=== PATIENT | male | born 1995 | race Caucasian/White ===

== ENCOUNTER 2018-05-13 15:18 | Emergency (ER) | payer OTHER ==
[~2018-05-13] VITALS: Ht 175.3 cm; Wt 59.1 kg
[2018-05-13 15:21] VITALS: BP 134/80
[2018-05-13 16:09] LABS: RAPID GROUP A STREP NEGATIVE (NEGATIVE)
[2018-05-13 16:14] LABS: INFLUENZA TYPE A NEGATIVE FOR TYPE A (NEGATIVE); INFLUENZA TYPE B NEGATIVE FOR TYPE B (NEGATIVE)
[2018-05-13] MEDS: DEXAMETHASONE SOD PHOS 4 MG/ML 5 ML VIAL IM ONE (17:35)
== END 2018-05-13 20:34 | disposition home or self-care (01) ==
LOC: EMS 15:20
DX: J02.9 Acute pharyngitis, unspecified (principal)
CPT/HCPCS: 36415; 86308; 87430; 87804; 96372; 99283; J1100